=== PATIENT | male | born 1985 | race Caucasian/White ===

== ENCOUNTER 2021-03-16 16:19 | Inpatient (IN) ==
[2021-03-16] MEDS ORDERED: Pantoprazole VIAL 40 MG VIAL IV ONE (16:59)
[2021-03-16] MEDS ORDERED: NS 0.9% 1000 ml BAG 1,000 ML IV ONE (17:03)
[2021-03-16 17:09] LABS: ABS Eosinophils 0.1 10^3/ul (0-0.6); ABS Lymphocytes 2.5 10^3/ul (1.0-4.8); ABS Monocytes 0.5 10^3/ul (0-0.8); ABS Neutrophils 5.7 10^3/ul (1.5-7.7); Eosinophil % 1.4 %; Hematocrit 19 % (42-52); Hemoglobin 6.7 g/dL (14.0-18.0); Lymphocyte % 28.2 %; Mean Corpuscular HGB Conc 35 g/dL (31-36); Mean Corpuscular Hemoglobin 32 pg (27-31); Mean Corpuscular Volume 91 fL (80-94); Mean Platelet Volume 7.6 fL (7.4-10.4); Nucleated Red Blood Cells % 0.4; Platelet Count 187 10^3/uL (150-450); Red Cell Distribution Width 13 % (10-15); White Blood Count 8.8 10^3/uL (3.5-10.8)
[2021-03-16 17:25] LABS: ALT 10 U/L (7-52); AST 15 U/L (13-39); Albumin 3.4 g/dL (3.2-5.2); Albumin/Globulin Ratio 2.1 (1-3); Alkaline Phosphatase 25 U/L (35-149); Anion Gap 5 mmol/L (2-11); Blood Urea Nitrogen 27 mg/dL (6-24); C Reactive Protein < 1.00 mg/L (<8.01); CO2 Carbon Dioxide 24 mmol/L (22-32); Calcium 7.8 mg/dL (8.6-10.3); Chloride 106 mmol/L (101-111); EGFR African American 97.3 (>60); EGFR Non-African American 80.4 (>60); Globulin 1.6 g/dL (2-4); Glucose 99 mg/dL (70-100); Potassium 3.6 mmol/L (3.5-5.0); Sodium 135 mmol/L (135-145)
[2021-03-16 17:27] LABS: Troponin I 0.01 ng/mL (<0.03)
[2021-03-16] MEDS ORDERED: Pantoprazole 80 mg in NS BAG 80 MG/250 ML BAG IV ONE (18:00)
[2021-03-16 22:23] LABS: ABS Eosinophils 0.2 10^3/ul (0-0.6); ABS Lymphocytes 2.7 10^3/ul (1.0-4.8); ABS Monocytes 0.5 10^3/ul (0-0.8); ABS Neutrophils 4.4 10^3/ul (1.5-7.7); Eosinophil % 2.3 %; Hematocrit 18 % (42-52); Hemoglobin 6.4 g/dL (14.0-18.0); Lymphocyte % 34.3 %; Mean Corpuscular HGB Conc 35 g/dL (31-36); Mean Corpuscular Hemoglobin 32 pg (27-31); Mean Corpuscular Volume 91 fL (80-94); Mean Platelet Volume 7.7 fL (7.4-10.4); Nucleated Red Blood Cells % 0.3; Platelet Count 151 10^3/uL (150-450); Red Blood Count 1.99 10^6 /uL (4.18-5.48); Red Cell Distribution Width 13 % (10-15); White Blood Count 7.8 10^3/uL (3.5-10.8)
[2021-03-17] MEDS ORDERED: Pantoprazole 80 mg in NS BAG 80 MG/250 ML BAG IV ONE (00:45)
[2021-03-17] MEDS ORDERED: Pantoprazole 80 mg IN NS 80 MG/250 ML BAG IV ONE (01:00)
[2021-03-17] MEDS: NS 0.9% 1000 ml BAG 1,000 ML IV SCH ×2 (02:27→11:12)
[2021-03-17 05:16] LABS: ABS Eosinophils 0.2 10^3/ul (0-0.6); ABS Lymphocytes 2.1 10^3/ul (1.0-4.8); ABS Monocytes 0.5 10^3/ul (0-0.8); Eosinophil % 2.9 %; Hematocrit 20 % (42-52); Hemoglobin 7.2 g/dL (14.0-18.0); Lymphocyte % 30.3 %; Mean Corpuscular HGB Conc 35 g/dL (31-36); Mean Corpuscular Hemoglobin 32 pg (27-31); Mean Corpuscular Volume 90 fL (80-94); Mean Platelet Volume 7.8 fL (7.4-10.4); Nucleated Red Blood Cells % 0.1; Platelet Count 142 10^3/uL (150-450); Red Blood Count 2.26 10^6 /uL (4.18-5.48); Red Cell Distribution Width 13 % (10-15); White Blood Count 6.8 10^3/uL (3.5-10.8)
[2021-03-17 05:28] LABS: Calcium 7.4 mg/dL (8.6-10.3); EGFR African American 105.3 (>60); Potassium 3.8 mmol/L (3.5-5.0)
[2021-03-17] MEDS ORDERED: Pantoprazole 80 mg IN NS 80 MG/250 ML BAG IV SCH (06:00)
[2021-03-17 06:03] LABS: HIV 4th Generation Nonreactive (Nonreactive)
[2021-03-17] MEDS ORDERED: diPHENhydraMINE IV 50 MG/ML 1 ml VIAL (BENADRYL) ONE (08:45)
[2021-03-17] MEDS ORDERED: fentaNYL 100 mcg/2 ml 50 MCG/ML VIAL ONE (08:45)
[2021-03-17] MEDS ORDERED: Midazolam 10 mg/10 ml VIAL 1 mg/ml 10 ml VIAL (10 mg) ONE (08:45)
[2021-03-17] MEDS ORDERED: Pantoprazole VIAL 40 MG VIAL IV SCH (11:00)
[2021-03-17] MEDS: Pantoprazole VIAL 40 MG VIAL IV SCH ×2 (11:16→21:11)
[2021-03-17 11:19] LABS: Hematocrit 21 % (42-52); Hemoglobin 7.4 g/dL (14.0-18.0); Mean Corpuscular HGB Conc 35 g/dL (31-36); Mean Corpuscular Hemoglobin 32 pg (27-31); Mean Corpuscular Volume 92 fL (80-94); Mean Platelet Volume 7.3 fL (7.4-10.4); Platelet Count 162 10^3/uL (150-450); Red Blood Count 2.33 10^6 /uL (4.18-5.48); Red Cell Distribution Width 14 % (10-15); White Blood Count 5.2 10^3/uL (3.5-10.8)
[2021-03-17 11:59] LABS: % Iron Saturation 54 % (15-55); Iron 149 ug/dL (50-212); Total Iron Binding Capacity 277 mcg/dL (250-450); Transferrin 198 mg/dL (203-362); Unsaturated Iron Binding < 262 ug/dL
[2021-03-17 12:19] LABS: Ferritin 78.9 ng/mL (24-336)
[2021-03-17] MEDS ORDERED: Calcium Gluconate 2 GM in NS 0.9% 100 ml BAG 100 ML IV ONE (14:55)
[2021-03-17] MEDS ORDERED: NS 0.9% 100 ml BAG 100 ML ONE (16:32)
[2021-03-17 18:04] LABS: Hematocrit 22 % (42-52); Hemoglobin 7.5 g/dL (14.0-18.0); Mean Corpuscular HGB Conc 35 g/dL (31-36); Mean Corpuscular Hemoglobin 32 pg (27-31); Mean Corpuscular Volume 91 fL (80-94); Mean Platelet Volume 7.5 fL (7.4-10.4); Platelet Count 169 10^3/uL (150-450); Red Blood Count 2.37 10^6 /uL (4.18-5.48); Red Cell Distribution Width 14 % (10-15); White Blood Count 7.5 10^3/uL (3.5-10.8)
[2021-03-18 06:11] LABS: Hematocrit 23 % (42-52); Mean Corpuscular HGB Conc 35 g/dL (31-36); Mean Corpuscular Hemoglobin 32 pg (27-31); Mean Corpuscular Volume 92 fL (80-94); Mean Platelet Volume 7.9 fL (7.4-10.4); Platelet Count 180 10^3/uL (150-450); Red Blood Count 2.47 10^6 /uL (4.18-5.48); Red Cell Distribution Width 14 % (10-15); White Blood Count 6.1 10^3/uL (3.5-10.8)
[2021-03-18 06:34] LABS: Calcium 7.8 mg/dL (8.6-10.3); EGFR African American 84.2 (>60); EGFR Non-African American 69.6 (>60); Potassium 3.6 mmol/L (3.5-5.0)
[2021-03-18] MEDS: Pantoprazole VIAL 40 MG VIAL IV SCH (08:26)
[2021-03-18 11:54] VITALS: BP 113/54
== END 2021-03-18 14:30 | disposition home or self-care (01) | DRG 812 ==
LOC: ED 16:19 → SSU 22:55
PROVIDERS: ADMIT Internal Medicine; ATTEND Student in an Organized Health Care Education/Training Program